=== PATIENT | male | born 1965 | race Caucasian/White ===

== ENCOUNTER 2022-03-18 13:27 | Emergency (ER) | payer MEDICAID ==
[~2022-03-18] VITALS: Ht 162.6 cm; Wt 74.1 kg
[2022-03-18] MEDS ORDERED: IBUP-1554 PO (13:32)
[2022-03-18 13:45] VITALS: BP 161/92
== END 2022-03-18 14:50 | disposition home or self-care (01) ==
LOC: EMS 13:31
DX: S46.812A Strain of other muscles, fascia and tendons at shoulder and upper arm level, left arm, initial encounter (principal); X58.XXXA Exposure to other specified factors, initial encounter; Y93.89 Activity, other specified; Y92.89 Other specified places as the place of occurrence of the external cause; Y99.8 Other external cause status
CPT/HCPCS: 72040; 82962; 99284